=== PATIENT | female | born 1940 | race Caucasian/White ===

== ENCOUNTER → 2017-03-24 | Outpatient (CLI) | payer MEDICARE ==
[~2017-03-24] MED LIST: BONIVA1 MG/ML PO; CALCIUM 600600 M2 PO; CPAP XX; DIOVAN320 MG PO; GEMFIBROZIL600 MG PO; LEVOTHYROXIN0.175 MG PO; MAXZIDE 25 MG-31 TAB PO; METFORMIN500 MG PO; MULTI VITAMINS1 TAB PO; PRAVASTATIN 20M20 MG PO; PRILOSEC20 M1 PO; TOPROL XL200 MG PO
--- NOTE | 2017-03-24 16:13 | RADIOLOGY REPORT PS360 ---
KNEE-3 VIEWS-RT HISTORY: RT KNEE PAIN ORDERING PHYSICIAN: Trenton Gee MD PATIENT AGE: 76 years COMPARISON: None FINDINGS: No fracture or dislocation. No lytic or blastic change. Normal mineralization. No significant arthritic changes evident. No other significant findings IMPRESSION: Negative right Knee
== END ==
LOC: RAD 15:39
DX: M25.561 Pain in right knee (principal)

== ENCOUNTER → 2017-07-25 | Outpatient (CLI) | payer MEDICARE ==
[2017-07-25 15:06] LABS: LYMPH # 1.9 K/mm3 (0.7-4.5); LYMPH % 21.6 % (10-50.0)
[2017-07-25 15:08] LABS: HEMOGLOBIN 12.5 g/dL (12.2-16.2)
== END ==
LOC: LAB 14:51
PROVIDERS: Internal Medicine
DX: R10.9 Unspecified abdominal pain (principal)

== ENCOUNTER → 2017-09-13 | Outpatient (CLI) | payer MEDICARE ==
--- NOTE | 2017-09-13 15:42 | RADIOLOGY REPORT PS360 ---
HIP LT 2-3V W/PELVIS IF PERFOR HISTORY: LEFT HIP PAIN ORDERING PHYSICIAN: Trenton Gee MD PATIENT AGE: 76 years COMPARISON: None FINDINGS: No fracture or dislocation is evident. No significant degenerative change. No lytic or blastic change. Unremarkable soft tissues IMPRESSION: Negative hip
== END ==
LOC: RAD 15:14
DX: M25.552 Pain in left hip (principal)

== ENCOUNTER → 2017-10-23 | Outpatient (CLI) | payer MEDICARE ==
--- NOTE | 2017-10-23 20:02 | RADIOLOGY REPORT PS360 ---
HIP LT 2-3V W/PELVIS IF PERFOR HISTORY: LT HIP PAIN ORDERING PHYSICIAN: Yahir Reagan MD PATIENT AGE: 76 years COMPARISON: 09/13/2017 FINDINGS: There is slight decrease in hip joint spaces superior medially with minimal osteosclerosis of the acetabulum on both sides consistent with minimal osteoarthritic change of the hips and SI joints. There is degenerative disc disease in the lower lumbar spine. 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
== END ==
LOC: RAD 11:22
DX: M25.552 Pain in left hip (principal)